=== PATIENT | female | born 1985 | race Caucasian/White ===

== ENCOUNTER 2017-12-28 07:17 | Emergency (ER) | payer SELFPAY ==
[~2017-12-28] VITALS: Ht 170.2 cm; Wt 63.5 kg
[2017-12-28 07:17] VITALS: BP 103/62
[2017-12-28] MEDS ORDERED: BISM262T15 PO (07:29)
== END 2017-12-28 07:44 | disposition home or self-care (01) ==
LOC: ER 07:19
DX: R19.7 Diarrhea, unspecified (principal); F17.200 Nicotine dependence, unspecified, uncomplicated
CPT/HCPCS: A4606; Z7610

== ENCOUNTER 2025-05-17 12:15 | Emergency (ER) | payer BC ==
[~2025-05-17] VITALS: Ht 170.2 cm; Wt 64.4 kg
[~2025-05-17 12:15] MED LIST: BISM262T15 PO
[2025-05-17 12:20] VITALS: BP 102/68; TEMP 98.2; O2SAT 99
[2025-05-17] MEDS: KETOROLAC TROMETHAMINE 15 MG/ML VIAL IM ONE (14:00)
[2025-05-17] MEDS: LIDOCAINE 5% (PATCH) 1 EA PATCH TP ONE (14:00)
[2025-05-17] MEDS ORDERED: LIDO30AD10 TP (14:18)
[2025-05-17] MEDS ORDERED: NAPR500T6 PO (14:18)
[2025-05-17] MEDS ORDERED: METH-647 PO (14:18)
[2025-05-17] MEDS ORDERED: LIDOCAINE 5% (PATCH) 1 EA PATCH TP ONE (14:25)
[2025-05-17] MEDS ORDERED: KETOROLAC TROMETHAMINE 15 MG/ML VIAL ONE (14:25)
== END 2025-05-17 15:06 | disposition home or self-care (01) ==
LOC: ER 12:18
DX: M54.59 Other low back pain (principal); M79.605 Pain in left leg; F17.200 Nicotine dependence, unspecified, uncomplicated; X50.0XXA Overexertion from strenuous movement or load, initial encounter; Y93.89 Activity, other specified; Y92.89 Other specified places as the place of occurrence of the external cause; Y99.8 Other external cause status
CPT/HCPCS: 99283; 96372; J1885

== ENCOUNTER 2025-09-09 17:04 | Emergency (ER) | payer BC ==
[~2025-09-09] VITALS: Ht 170.2 cm; Wt 67.1 kg
[~2025-09-09 17:04] MED LIST changes: +LIDO30AD10 TP; +METH-647 PO; +NAPR500T6 PO
[2025-09-09 18:34] LABS: PLATELET COUNT (AUTO) 178 K/uL (150-450); RED BLOOD CELL COUNT(AUTO) 4.29 MIL/uL (4.0-5.2); RED CELL DISTRIBUTION WIDTH 13.3 % (11.5-15.0); WHITE BLOOD COUNT (AUTO) 7.4 K/uL (4.3-11.0)
[2025-09-09 18:41] LABS: APPEARANCE,URINE CLEAR (CLEAR); BLOOD, URINE NEGATIVE Ery/uL (NEGATIVE); LEUKOCYTE ESTERASE ,URINE NEGATIVE (NEGATIVE); NITRITE, URINE NEGATIVE (NEGATIVE); UGLUCOSE NEGATIVE (NEGATIVE)
[2025-09-09 18:43] LABS: ADD URINE CULTURE NO; PREGNANCY TEST URINE QUAL NEGATIVE (NEGATIVE); SQUAMOUS EPITHELIAL CELL,UR Few /HPF (None Seen)
[2025-09-09 18:58] LABS: AMPHETAMINE, URINE NEGATIVE (NEGATIVE); BARBITURATE, URINE NEGATIVE (NEGATIVE); BENZODIAZEPINE, URINE NEGATIVE (NEGATIVE); COCCAINE, URINE NEGATIVE (NEGATIVE); OPIATE, URINE NEGATIVE (NEGATIVE)
[2025-09-09 19:03] LABS: ASPARTATE AMINOTRANSFERASE 18 U/L (15-37); CALCIUM, SERUM 9.1 mg/dL (8.5-10.1); CREATININE 0.7 mg/dL (0.6-1.3); SODIUM SERUM 138 mmol/L (136-145); TOTAL PROTEIN, SERUM 7.4 g/dL (6.4-8.2); UREA NITROGEN, BLOOD 10 mg/dL (7-18)
[2025-09-09 19:07] LABS: CANNABINOID, URINE POSITIVE (NEGATIVE)
[2025-09-09 19:35] VITALS: BP 110/65; TEMP 98; O2SAT 100
== END 2025-09-09 19:36 | disposition home or self-care (01) ==
LOC: ER 17:10
DX: F41.9 Anxiety disorder, unspecified (principal); F12.90 Cannabis use, unspecified, uncomplicated; R42 Dizziness and giddiness; F17.200 Nicotine dependence, unspecified, uncomplicated; Z79.899 Other long term (current) drug therapy
CPT/HCPCS: 36415; 71045-TC; 80048-TC; 80076-TC; 81001; 83735-TC; 84484-TC; 84703-TC; 85025-TC